=== PATIENT | male | born 1990 | race Caucasian/White ===

== ENCOUNTER 2022-11-16 10:11 | Emergency (ER) | payer OTHER ==
[2022-11-16 10:21] VITALS: BP 133/86; PULSE 80; RESP 16; TEMP 97.9; BMI 27.9
== END 2022-11-16 11:38 | disposition home or self-care (01) ==
LOC: FER 10:11
DX: S86.812A Strain of other muscle(s) and tendon(s) at lower leg level, left leg, initial encounter (principal); M79.662 Pain in left lower leg; X58.XXXA Exposure to other specified factors, initial encounter; Y93.39 Activity, other involving climbing, rappelling and jumping off
CPT/HCPCS: 73590-TC-LT-FY; 99283-25